=== PATIENT | male | born 1985 | race Caucasian/White ===

== ENCOUNTER → 2016-07-02 | Outpatient (CLI) | payer MEDICARE, OTHER ==
[2016-07-02 14:47] LABS: RED BLOOD COUNT 5.66 M/UL (4.20-5.50); WHITE BLOOD COUNT 7.3 K/UL (4.5-11.0)
[2016-07-02 15:01] LABS: BUN/CREATININE RATIO 12 (0-10)
== END ==
LOC: LAB 13:47
PROVIDERS: Internal Medicine
DX: R10.812 Left upper quadrant abdominal tenderness (principal); S31.103A Unspecified open wound of abdominal wall, right lower quadrant without penetration into peritoneal cavity, initial encounter; Q05.9 Spina bifida, unspecified; M40.00 Postural kyphosis, site unspecified; E66.9 Obesity, unspecified; E78.2 Mixed hyperlipidemia
CPT/HCPCS: 80053; 82150; 83690; 85025; 86140

== ENCOUNTER → 2016-07-10 | Outpatient (CLI) | payer MEDICARE, OTHER | LOC: CT 14:23 | DX: R10.812 Left upper quadrant abdominal tenderness (principal); S31.103A Unspecified open wound of abdominal wall, right lower quadrant without penetration into peritoneal cavity, initial encounter; Q05.9 Spina bifida, unspecified; M40.00 Postural kyphosis, site unspecified; E66.9 Obesity, unspecified; E78.2 Mixed hyperlipidemia; Z93.3 Colostomy status; E88.2 Lipomatosis, not elsewhere classified; N13.30 Unspecified hydronephrosis; G62.9 Polyneuropathy, unspecified | CPT/HCPCS: 74150 ==

== ENCOUNTER → 2016-08-08 | Outpatient (CLI) | payer MEDICARE, OTHER | LOC: MRI 10:20 | DX: N28.89 Other specified disorders of kidney and ureter (principal); R10.812 Left upper quadrant abdominal tenderness; R93.421 Abnormal radiologic findings on diagnostic imaging of right kidney; E88.2 Lipomatosis, not elsewhere classified; E66.9 Obesity, unspecified; G83.9 Paralytic syndrome, unspecified; M40.00 Postural kyphosis, site unspecified; Q05.9 Spina bifida, unspecified; N26.1 Atrophy of kidney (terminal) | CPT/HCPCS: 74183; A9577 ==

== ENCOUNTER → 2020-04-14 | Outpatient (CLI) | payer MEDICARE, OTHER | LOC: KOH-I 10:26 | DX: S42.401A Unspecified fracture of lower end of right humerus, initial encounter for closed fracture (principal); X58.XXXA Exposure to other specified factors, initial encounter | CPT/HCPCS: 73200 ==

== ENCOUNTER → 2021-07-06 | Outpatient (CLI) | payer MEDICARE, OTHER | LOC: US 16:00 | DX: N49.2 Inflammatory disorders of scrotum (principal) | CPT/HCPCS: 76870 ==